=== PATIENT | female | born 1940 | race Caucasian/White ===

== ENCOUNTER 2017-09-04 09:33 | Emergency (ER) | payer OTHER ==
[~2017-09-04] VITALS: Ht 154.9 cm; Wt 54.0 kg
[~2017-09-04 09:33] MED LIST: ATOR40TA68 PO; GLIP5TAB13 PO; IBUP800T25 PO; METF1000 PO
[2017-09-04 09:36] VITALS: Ht 154.9 cm; Wt 54.0 kg
[2017-09-04] MEDS ORDERED: SOD CHLORIDE 0.9% 500 ML IV STA (09:54)
[2017-09-04] MEDS ORDERED: ONDANSETRON INJ 8 MG in DEXTROSE 5% 50 ML IV STA (09:54)
[2017-09-04] MEDS ORDERED: ONDANSETRON 4 MG INJ IV STA (09:57)
--- NOTE | 2017-09-04 10:04 | ERD ---
ER Documentation Chief Complaint Chief Complaint C/O DIZZINESS AND VOMITING SINCE MORNING HPI This is a 76-year-old female with a past medical history of hypertension, hyperlipidemia, diabetes, varicose veins who is presenting with lightheadedness , nausea and vomiting that began this morning when she woke up. The patient has poor appetite at baseline, but she has not eaten anything out of the ordinary over the last 1-2 days. She said that she felt okay when she went to sleep last night, but she woke up with feelings of lightheadedness. This happened on Wednesday as well, but it resolved on its own. The patient endorses nonbilious nonbloody vomit. She states that the vomit has been yellow. Since coming to the emergency department, the patient's symptoms seem to have improved. Her symptoms are positional, worse with sitting up. It is not worse with movement of her head or eyes. She does not endorse changes in her hearing. She does not have decreased hearing or tinnitus. The patient denies feeling sick recently. The patient denies fever or chills. The patient has had no headache or vision changes. The patient has had no chest pain or shortness of breath trouble breathing. The patient denies abdominal pain or changes to bowel movements or urination. The patient has had no focal deficits. The patient has had no weakness or numbness or tingling to the face or extremities. ROS All systems reviewed and are negative except as per history of present illness. Medications Home Meds Reported Medications Omeprazole* (Omeprazole*) 40 Mg Capsule.dr, 40 MG PO DAILY, #30 CAP 09/04/17 Alendronate Sodium* (Fosamax*) 70 Mg Tablet, 70 MG PO Q7D, #4 TAB 09/04/17 Atorvastatin* (Atorvastatin*) 40 Mg Tablet, 40 MG PO QHS, #30 TAB 09/08/16 Glipizide* (Glipizide*) 5 Mg Tablet, 5 MG PO BID, TAB 04/19/16 Metformin Hcl* (Metformin Hcl*) 1,000 Mg Tablet, 1000 MG PO WITH BREAKFAST DINNE , #30 TAB 04/19/16 Discontinued Scripts Ibuprofen* (Motrin*) 800 Mg Tab, 800 MG PO Q6H Y for PAIN AND OR ELEVATED TEMP, #30 TAB Prov:CHERRY ESTEVES DO 09/08/16 Allergies Allergies: Coded Allergies: Penicillins (Verified Allergy, Mild, 09/04/17) PMhx/Soc History of Surgery: No Anesthesia Reaction: No Hx Neurological Disorder: No Hx Respiratory Disorders: No Hx Cardiac Disorders: Yes (HTN, HLD, DM) Hx Psychiatric Problems: No Hx Alcohol Use: No Hx Substance Use: No Hx Tobacco Use: No Smoking Status: Never smoker Physical Exam Vitals Vital Signs Date Time Temp Pulse Resp B/P Pulse Ox O2 Delivery O2 Flow Rate FiO2 09/04/17 12:11 68 18 149/71 100 Room Air 09/04/17 09:36 97.4 58 18 173/93 100 Physical Exam Const: No apparent distress, well-developed, well-nourished Head: Atraumatic Eyes: Normal Conjunctiva. Extraocular movements intact. ENT: Normal External Ears, Nose and Mouth. Neck: Full range of motion. ~ No meningismus. Resp: Clear to auscultation bilaterally Cardio: Regular rate and rhythm, no murmurs Abd: Soft, non tender, non distended. Normal bowel sounds Skin: No petechiae or rashes Back: No midline or flank tenderness Ext: No cyanosis, or edema Neur: Awake and alert, oriented 4. Cranial nerves intact. No facial droop. Normal strength and sensation in all extremities. Coordination with finger to nose normal. Psych: Normal Mood and Affect Result Diagram: 09/04/17 1002 09/04/17 1002 Results 24 hrs Laboratory Tests Test 09/04/17 10:02 09/04/17 12:00 White Blood Count 7.510^3/ul Red Blood Count 4.3810^6/ul Hemoglobin 13.1g/dl Hematocrit 38.7% Mean Corpuscular Volume 88.4fl Mean Corpuscular Hemoglobin 29.9pg Mean Corpuscular Hemoglobin Concent 33.9g/dl Red Cell Distribution Width 12.1% Platelet Count 53752^3/UL Mean Platelet Volume 11.1fl Neutrophils % 69.7% Lymphocytes % 23.6% Monocytes % 4.9% Eosinophils % 0.5% Basophils % 0.8% Nucleated Red Blood Cells % 0.0/100WBC Neutrophils # 5.210^3/ul Lymphocytes # 1.810^3/ul Monocytes # 0.410^3/ul Eosinophils # 0.010^3/ul Basophils # 0.110^3/ul Nucleated Red Blood Cells # 0.010^3/ul Sodium Level 140mmol/L Potassium Level 5.3mmol/L Chloride Level 97mmol/L Carbon Dioxide Level 29mmol/L Anion Gap 19 Blood Urea Nitrogen 10mg/dl Creatinine 0.80mg/dl Glucose Level 229mg/dl Lactic Acid Level 1.4mmol/L Calcium Level 9.8mg/dl Total Bilirubin 0.7mg/dl Direct Bilirubin 0.00mg/dl Indirect Bilirubin 0.7mg/dl Aspartate Amino Transf (AST/SGOT) 61IU/L Alanine Aminotransferase (ALT/SGPT) 85IU/L Alkaline Phosphatase 70IU/L Troponin I < 0.012ng/ml Total Protein 7.9g/dl Albumin 5.0g/dl Globulin 2.90g/dl Albumin/Globulin Ratio 1.72 Lipase 121U/L Urine Color STRAW Urine Clarity CLEAR Urine pH 7.0 Urine Specific [place] 1.009 Urine Ketones 1+mg/dL Urine Nitrite NEGATIVEmg/dL Urine Bilirubin NEGATIVEmg/dL Urine Urobilinogen NEGATIVEmg/dL Urine Leukocyte Esterase NEGATIVELeu/ul Urine Hemoglobin NEGATIVEmg/dL Urine Glucose 2+mg/dL Urine Total Protein NEGATIVEmg/dl Current Medications Medications (Trade) Dose Ordered Sig/Liam Route PRN Reason Start Time Stop Time Status Last Admin Dose Admin Sodium Chloride 500 ml @ 500 mls/hr Q1H STAT IV 09/04/17 09:54 09/04/17 10:53 DC 09/04/17 10:08 Ondansetron HCl/ Dextrose (Zofran Inj/D5W) 54 ml @ 200 mls/hr ONCE STAT IV 09/04/17 09:54 09/04/17 09:59 DC Ondansetron HCl (Zofran Inj) 4 mg ONCE STAT IV 09/04/17 09:57 09/04/17 09:59 DC 09/04/17 10:14 Procedures/MDM MDM Patient's presentation warrants further investigation. The patient had improvement of her dizziness and nausea prior to evaluation. Her history is suspicious for presyncope. She does not have a history of vertigo, but this is part of the differential. However, this is a diagnosis of exclusion. The patient does not have any obvious neurologic deficits, but a CT scan of the head will be performed to rule out any intracranial pathology. We evaluate for any metabolic disturbances. An EKG and chest x-ray and troponin will also be performed to evaluate for a cardiac etiology as well. LABS The patient's blood work was obtained and reviewed. The patient seemed shows no leukocytosis or left shift. The patient is afebrile, and I do not suspect a systemic infection. The patient is not anemic today. The patient's platelet count is unremarkable. The patient's CMP shows no signs of metabolic or electrolyte abnormality. The patient has normal renal function testing. The patient does have a very mild transaminitis. She does not endorse diarrhea or any changes to her bowel movements. I have low suspicion for hepatitis A. The patient has a normal lactic acid. I have low suspicion for mesenteric ischemia or ischemic colitis. The patient's troponin is negative. I have decreased suspicion for a cardiac pathology as well. The patient's lipase is also within normal limits and I have low suspicion for pancreatitis. Patient's urinalysis shows glucose and ketones. I do have low suspicion for DKA in this patient. Dehydration is a possibility although her blood work is unremarkable for an elevated BUN as well as an anion gap. EKG EKG read by me: Rate/Rhythm: Sinus rhythm, normal at a rate of 73, occasional PACs Intervals: Normal [place]: Normal Impression: No evidence of ischemia or arrhythmia IMAGING CXR FINDINGS: The heart and mediastinum are within normal limits. The lungs are clear. The aortic arch is calcified and the thoracic aorta is tortuous. There is no significant pleural effusion or pneumothorax. IMPRESSION: No acute disease. The aortic arch is calcified and the thoracic aorta is tortuous. Electronically viewed and signed by Physician Harshil on 09/04/2017 10:44 CT head FINDINGS: There is no intracranial hemorrhage, mass effect, or midline shift. No extra-axial fluid collection is seen. There is mild to moderate age appropriate diffuse cerebral volume loss with sulcal and ventricular dilatation.. The density of the brain is normal, and the thapa white matter differentiation appears well-preserved. The visualized osseous structures are grossly unremarkable. There is opacification of the right sphenoid sinus. IMPRESSION: No evidence of acute intracranial pathology. Age-appropriate atrophy . Electronically viewed and signed by .Tutu Infante MD, MD on 09/04/2017 13: 33 TREATMENT/DISPOSITION The patient was given IV fluids and Zofran in the emergency department. Her symptoms have completely resolved. The patient's blood work, imaging, EKG and physical exam are reassuring at this time. I feel that she is safe for discharge. She was ambulatory in the emergency department without any change in symptoms. She felt well and would like to follow-up with her primary care doctor. At this time, the patient is stable for discharge. She will be given precautions with which to return to the emergency department. She needs to follow-up with her doctor in 2 3 days for reevaluation. Departure Diagnosis: Primary Impression: Dizziness Additional Impression: Nausea & vomiting Vomiting type: unspecified Vomiting Intractability: non-intractable Qualified Code: R11.2 - Non-intractable vomiting with nausea, unspecified vomiting type Condition: Stable AIDE SIMPSON MD Sep 04, 2017 10:04
[2017-09-04 10:14] LABS: BASOPHIL # 0.1 10^3/ul (0.0-0.1); BASOPHILS % 0.8 % (0.0-2.0); EOSINOPHILS % 0.5 % (0.0-7.0); HEMATOCRIT 38.7 % (37.0-47.0); HEMOGLOBIN 13.1 g/dl (12.0-16.0); LYMPHOCYTES # 1.8 10^3/ul (0.8-2.9); LYMPHOCYTES % 23.6 % (15.0-51.0); MEAN CORPUSCULAR HEMOGLOBIN 29.9 pg (29.0-33.0); MEAN CORPUSCULAR HGB CONC 33.9 g/dl (32.0-37.0); MEAN CORPUSCULAR VOLUME 88.4 fl (82.0-101.0); MEAN PLATELET VOLUME 11.1 fl (7.4-10.4); MONOCYTE # 0.4 10^3/ul (0.3-0.9); MONOCYTES % 4.9 % (0.0-11.0); NEUTROPHIL # 5.2 10^3/ul (1.6-7.5); NEUTROPHILS % 69.7 % (39.0-77.0); PLATELET COUNT 264 10^3/UL (140-415); RED BLOOD COUNT 4.38 10^6/ul (4.20-5.40); RED CELL DISTRIBUTION WIDTH 12.1 % (11.5-14.5); WHITE BLOOD COUNT 7.5 10^3/ul (4.8-10.8)
[2017-09-04 10:34] LABS: ALANINE AMINOTRANSFERASE 85 IU/L (13-69); ALBUMIN/GLOBULIN RATIO 1.72; ALKALINE PHOSPHATASE 70 IU/L (42-121); ANION GAP 19 (8-16); ASPARTATE AMINO TRANSFERASE 61 IU/L (15-46); BILIRUBIN,INDIRECT 0.7 mg/dl (0-1.1); BILIRUBIN,TOTAL 0.7 mg/dl (0.2-1.3); BLOOD UREA NITROGEN 10 mg/dl (7-20); CALCIUM 9.8 mg/dl (8.4-10.2); CARBON DIOXIDE 29 mmol/L (21-31); CHLORIDE 97 mmol/L (97-110); GLUCOSE 229 mg/dl (70-220); POTASSIUM 5.3 mmol/L (3.5-5.1); SODIUM 140 mmol/L (135-144); TOTAL PROTEIN 7.9 g/dl (6.1-8.1)
--- NOTE | 2017-09-04 10:45 | RADRPT ---
PROCEDURE: XR Chest. CLINICAL INDICATION: Abdominal Pain TECHNIQUE: Single frontal view of the chest was obtained. COMPARISON: Chest x-ray from 04/19/2016 FINDINGS: The heart and mediastinum are within normal limits. The lungs are clear. The aortic arch is calcified and the thoracic aorta is tortuous. There is no significant pleural effusion or pneumothorax. IMPRESSION: No acute disease. The aortic arch is calcified and the thoracic aorta is tortuous. RPTAT: EE Physician Harshil Date Time Electronically viewed and signed by Physician Harshil on 09/04/2017 10:44 RA/
[2017-09-04 10:51] LABS: TROPONIN-I < 0.012 ng/ml (0.00-0.12)
[2017-09-04 12:11] VITALS: BP 149/71; PULSE 68; RESP 18
[2017-09-04 12:29] LABS: ADD UMIC NO; UR ASCORBIC ACID NEGATIVE (NEGATIVE); UR BILIRUBIN (Dip) NEGATIVE (NEGATIVE); UR BLOOD (Dip) NEGATIVE (NEGATIVE); UR CLARITY CLEAR (CLEAR); UR COLOR STRAW (YELLOW); UR GLUCOSE (Dip) 2+ mg/dL (NEGATIVE); UR KETONES (Dip) 1+ mg/dL (NEGATIVE); UR LEUKOCYTE ESTERASE (Dip) NEGATIVE Leu/ul (NEGATIVE); UR NITRITE (Dip) NEGATIVE (NEGATIVE); UR SPECIFIC GRAVITY (Dip) 1.009 (1.003-1.030); UR TOTAL PROTEIN (Dip) NEGATIVE (NEGATIVE); UR UROBILINOGEN (Dip) NEGATIVE (NEGATIVE)
[2017-09-04] MEDS ORDERED: ALEN70TA30 PO (12:48)
[2017-09-04] MEDS ORDERED: OMEP40CA6 PO (12:49)
--- NOTE | 2017-09-04 13:33 | RADRPT ---
PROCEDURE: CT Brain without contrast. CLINICAL INDICATION: Dizziness. TECHNIQUE: A CT of the brain was performed on a multidetector CT scanner utilizing axial imaging f rom the skull base through the vertex without IV contrast. Multiplanar reformatted images were made . Images were reviewed on a PACS workstation. The CTDIvol is 45 mGy and the DLP is 720 mGycm. One or more of the following dose reduction techniques were utilized: 1.) Automated exposure control 2.) Adjustment of the mA +/- kV according to patient's size 3.) Use of iterative reconstruction technique. COMPARISON: Head CT September 08, 2016 FINDINGS: There is no intracranial hemorrhage, mass effect, or midline shift. No extra-axial fluid collection is seen. There is mild to moderate age appropriate diffuse cerebral volume loss with sulcal and kashif tricular dilatation.. The density of the brain is normal, and the thapa white matter differentiation appears well-preserved. The visualized osseous structures are grossly unremarkable. There is opacif ication of the right sphenoid sinus. IMPRESSION: 1. No evidence of acute intracranial pathology. 2. Age-appropriate atrophy . .Tutu Infante MD, MD Date Time Electronically viewed and signed by .Tutu Infante MD, MD on 09/04/2017 13:33 .A/
== END 2017-09-04 14:00 | disposition home or self-care (01) ==
LOC: E/R 09:33
DX: R42 Dizziness and giddiness (principal); R11.2 Nausea with vomiting, unspecified; I10 Essential (primary) hypertension; E11.9 Type 2 diabetes mellitus without complications; Z79.84 Long term (current) use of oral hypoglycemic drugs
CPT/HCPCS: 36415; 70450; 71010; 80053; 81003; 83605; 83690; 84484; 85025; 87086; 93005; 96374; 99285; J2405; J7040